=== PATIENT | female | born 1925 | race Caucasian/White ===

== ENCOUNTER 2016-08-12 16:44 | Outpatient (CLI) | payer MEDICARE ==
[2016-08-12 17:10] LABS: #Basophils 0.1 thou/uL (0.0-0.2); #Eosinphils 0.2 thou/uL (0.0-0.7); #Lymphocytes 1.6 thou/uL (1.20-3.40); #Monocytes 0.6 thou/uL (0.11-0.59); #Neutrophils 6.3 thou/uL (1.40-6.50); %Basophils 1.1 % (0.0-1.0); %Eosinophils 2.5 % (0.0-10.0); %Lymphocytes 17.8 % (21.0-51.0); %Monocytes 7.1 % (0.0-10.0); Hematocrit 38.7 % (36.0-47.0); Mean Platelet Volume 7.3 fL (7.4-10.4); Red Blood Cell (RBC) Count 3.93 mill/uL (4.20-5.40); White Blood Cell (WBC) Count 8.8 thou/uL (4.8-10.8)
== END 2016-08-12 16:45 | disposition home or self-care (01) ==
LOC: NAV LAB 16:44
PROVIDERS: ATTEND Internal Medicine
DX: N93.9 Abnormal uterine and vaginal bleeding, unspecified (principal)
CPT/HCPCS: 85025

== ENCOUNTER 2016-12-22 20:02 | Emergency (ER) | payer MEDICARE ==
[2016-12-22 21:06] LABS: ALT (SGPT) 12 U/L (8-55); AST (SGOT) 14 U/L (5-34); Albumin 3.3 g/dL (3.4-4.8); Alkaline Phosphatase 56 U/L (40-150); Anion Gap 13 mmol/L (10-20); BUN (Urea Nitrogen) 30 mg/dL (9.8-20.1); Bilirubin, Total 0.4 mg/dL (0.2-1.2); Calc. Creatinine Clearance 0 mL/min (70-130); Calcium 8.9 mg/dL (7.8-10.44); Carbon Dioxide 27 mmol/L (23-31); Chloride 108 mmol/L (98-107); Estimated GFR-MDRD 55; Globulin 3.6 g/dL (2.4-3.5); Glucose 113 mg/dL (83-110); Potassium 4.2 mmol/L (3.5-5.1); Protein, Total 6.9 g/dL (6.0-8.3); Sodium 144 mmol/L (136-145)
[2016-12-22 21:08] LABS: CKMB 2.8 ng/mL (0-6.6); Troponin I 0.037 ng/mL (< 0.028)
[2016-12-22] MEDS ORDERED: Furosemide 20 MG/2 ML VIAL ONE (21:09)
[2016-12-22] MEDS ORDERED: Levofloxacin 500 mg/D5W 100 ml Premix Bag ONE (21:09)
[2016-12-22] MEDS ORDERED: Furosemide 40 MG/4 ML VIAL ONE (21:09)
[2016-12-22 21:10] LABS: Band 4 % (5-11); Eosinophils 1 % (0-10); Hemoglobin 11.5 g/dL (12.0-16.0); Lymphocytes 13 % (21-51); MDiff Complete? YES; Mean Corpuscular HGB CONC 31.8 g/dL (32.0-36.0); Mean Corpuscular Hemoglobin 31.2 pg (27.0-31.0); Mean Corpuscular Volume 98.4 fl (81.0-99.0); Mean Platelet Volume 6.4 fL (7.4-10.4); Monocytes 8 % (0-10); Neutrophil 74 % (42-75); Platelet Count 265 thou/uL (130-400); RBC Distribution Width 11.9 % (11.5-14.5); Red Blood Cell (RBC) Count 3.67 mill/uL (4.20-5.40); White Blood Cell (WBC) Count 10.3 thou/uL (4.8-10.8)
--- NOTE | 2016-12-22 22:07 | RAD ---
CHEST ONE VIEW 12/22/16 HISTORY: Cough after drinking liquids. COMPARISON: Chest one view 01/04/15. FINDINGS: The heart size is markedly enlarged. 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 There is a left upper lobe nodular opacity measuring approximately 15 mm. There are layering effusions and a right lower lobe air space opacity. IMPRESSION: 1. 15 mm nodular opacity left upper lobe. Followup nonemergent CT chest recommended. 2. Marked cardiomegaly. 3. Small effusions. 4. 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 5. Compression fracture of what appears to be likely L1. This finding appears similar. CODE: T CODE: Lung nodule POS: [facility]
== END 2016-12-22 22:33 | disposition home or self-care (01) ==
LOC: NAV ERS 20:02
DX: J40 Bronchitis, not specified as acute or chronic (principal); I11.0 Hypertensive heart disease with heart failure; I50.9 Heart failure, unspecified; I48.91 Unspecified atrial fibrillation; J44.9 Chronic obstructive pulmonary disease, unspecified; Z87.891 Personal history of nicotine dependence
CPT/HCPCS: 71010; 80053; 82553; 83880; 84484; 85025; 85379; 93005; 94760; 96365; 96375; J1940; J1956